=== PATIENT | male | born 1955 | race Caucasian/White ===

== ENCOUNTER → 2016-12-29 | Outpatient (CLI) | payer BC ==
[2016-12-29 15:12] LABS: CH 29.9; CHCM 33.5; HCT 46.5 % (39.0-53.0); HDW 2.28; HGB 15.6 gm/dL (13.0-17.5); MCH 30.2 pg (25.0-35.0); MCHC 33.7 g/dL (31.0-37.0); MCV 89.7 fL (80.0-100.0); RBC 5.18 m/uL (4.30-5.90); RDW 13.2 % (11.5-15.5); WBC 8.3 k/uL (3.8-10.6)
[2016-12-29 15:16] LABS: Partial Thromboplastin Time 24.8 sec (22.0-30.0); Prothrombin Time 10.1 sec (9.0-12.0)
== END | disposition home or self-care (01) ==
LOC: LABWHC1 14:54
PROVIDERS: ATTEND Nurse Practitioner Women's Health
DX: Z01.812 Encounter for preprocedural laboratory examination (principal); M25.561 Pain in right knee
CPT/HCPCS: 36415; 85027; 85610; 85730

== ENCOUNTER 2018-02-12 13:27 | Emergency (ER) | payer BC ==
[2018-02-12] MEDS ORDERED: ONDANSETRON 4 MG/2 ML VIAL IVP STA (14:01)
[2018-02-12] MEDS ORDERED: KETOROLAC 30 MG/ML 1 ML VIAL IVP STA (14:01)
[2018-02-12] MEDS ORDERED: SODIUM CHLORIDE 0.9% 1,000 ML IV STA ×2 (14:01)
--- NOTE | 2018-02-12 14:01 | ED ---
Abdominal Pain HPI - General Chief Complaint: Abdominal Pain Stated Complaint: Diverticulitis Time Seen by Provider: 02/12/18 13:33 Source: patient, RN notes reviewed, old records reviewed Mode of arrival: ambulatory Limitations: no limitations - History of Present Illness Initial Comments: This patient's a 62-year-old male presents emergency department today with intermittent left lower quadrant abdominal pain for the past 2 weeks. Patient reports that he did take some leftover antibiotics on through Tuesday. He reports that today he is out of the antibiotics and went to an urgent care. He was on these antibiotics to treat for diverticulitis. Patient states that he was sent here to the urgent from urgent care due to hematuria as well as increased pain. Patient reports he did have fever 101. Patient states that he hasn't taking Motrin Tylenol for pain. Currently his pain is a 2 out of 10. It seems to come and go. - Related Data Previous Rx's Medication Instructions Recorded Ciprofloxacin HCl 500 mg PO BID #20 tab 02/12/18 metroNIDAZOLE [Flagyl] 500 mg PO TID #30 tab 02/12/18 Allergies Allergy/AdvReac Type Severity Reaction Status Date / Time Fish Containing Products Allergy Unknown Verified 02/12/18 13:30 [Fish] tree nut [Nut] Allergy Unknown Verified 02/12/18 13:30 Review of Systems ROS Statement: Those systems with pertinent positive or pertinent negative responses have been documented in the HPI. ROS Other: All systems not noted in ROS Statement are negative. Past Medical History Past Medical History: No Reported History Additional Past Medical History / Comment(s): diverticulitis History of Any Multi-Drug Resistant Organisms: None Reported Past Surgical History: Hernia Repair Past Psychological History: No Psychological Hx Reported Smoking Status: Current some day smoker Past Alcohol Use History: Occasional Past Drug Use History: Marijuana General Exam - General Exam Comments Initial Comments: This is a 62-year-old male. Alert and oriented. No significant distress. Limitations: no limitations General appearance: alert, in no apparent distress Head exam: Present: atraumatic, normocephalic, normal inspection Eye exam: Present: normal appearance, PERRL, EOMI. Absent: scleral icterus, conjunctival injection, periorbital swelling ENT exam: Present: normal exam, mucous membranes moist Neck exam: Present: normal inspection. Absent: tenderness, meningismus, lymphadenopathy Respiratory exam: Present: normal lung sounds bilaterally. Absent: respiratory distress, wheezes, rales, rhonchi, stridor Cardiovascular Exam: Present: regular rate, normal rhythm, normal heart sounds. Absent: systolic murmur, diastolic murmur, rubs, gallop, clicks GI/Abdominal exam: Present: soft, normal bowel sounds. Absent: distended, tenderness, guarding, rebound, rigid Extremities exam: Present: normal inspection, full ROM, normal capillary refill. Absent: tenderness, pedal edema, joint swelling, calf tenderness Back exam: Present: normal inspection, other (LLQ tenderness) Neurological exam: Present: alert, oriented X3, CN II-XII intact Psychiatric exam: Present: normal affect, normal mood Skin exam: Present: warm, dry, intact, normal color. Absent: rash Course Vital Signs 02/12/18 13:28 Temperature 97.7 F Pulse Rate 52 L Respiratory 18 Rate Blood Pressure 117/95 O2 Sat by Pulse 99 Oximetry Medical Decision Making - Medical Decision Making This is a 62-year-old male presents for his pharmacy her to plan of intermittent left lower quadrant abdominal pain for the past 2 weeks. Have fever a few days ago. Aside labwork was reviewed and unremarkable. Did have some tenderness on exam. We did do a computed tomography scan without contrast. CT she is evidence of mild acute diverticulitis. We'll start the Patient on Cipro and Flagyl. Discussed following up with his primary care physician. He does have an appointment on Tuesday for his regular physical. Discussed return parameters. All questions answered. Patient understands treatment plan will comply. - Lab Data Result diagrams: 02/12/18 13:50 02/12/18 13:50 Lab Results 02/12/18 02/12/18 02/12/18 Range/Units 13:50 13:50 13:50 WBC 7.6 (3.8-10.6) k/uL RBC 5.91 H (4.30-5.90) m/uL Hgb 17.0 (13.0-17.5) gm/dL Hct 51.5 (39.0-53.0) % MCV 87.0 (80.0-100.0) fL MCH 28.8 (25.0-35.0) pg MCHC 33.1 (31.0-37.0) g/dL RDW 13.1 (11.5-15.5) % Plt Count 211 (150-450) k/uL Neutrophils % 64 % Lymphocytes % 22 % Monocytes % 6 % Eosinophils % 5 % Basophils % 1 % Neutrophils # 4.9 (1.3-7.7) k/uL Lymphocytes # 1.7 (1.0-4.8) k/uL Monocytes # 0.5 (0-1.0) k/uL Eosinophils # 0.4 (0-0.7) k/uL Basophils # 0.1 (0-0.2) k/uL Sodium 140 (137-145) mmol/L Potassium 4.7 (3.5-5.1) mmol/L Chloride 101 (98-107) mmol/L Carbon Dioxide 29 (22-30) mmol/L Anion Gap 10 mmol/L BUN 15 (9-20) mg/dL Creatinine 0.83 (0.66-1.25) mg/dL Est GFR (CKD-EPI)AfAm >90 (>60 ml/min/1.73 sqM) Est GFR (CKD-EPI)NonAf >90 (>60 ml/min/1.73 sqM) Glucose 96 (74-99) mg/dL Calcium 9.7 (8.4-10.2) mg/dL Total Bilirubin 0.8 (0.2-1.3) mg/dL AST 21 (17-59) U/L ALT 36 (21-72) U/L Alkaline Phosphatase 61 (38-126) U/L Total Protein 7.9 (6.3-8.2) g/dL Albumin 4.5 (3.5-5.0) g/dL Amylase 56 (30-110) U/L Lipase 21 L (23-300) U/L Urine Color Light Yellow Urine Appearance Clear (Clear) Urine pH 6.0 (5.0-8.0) Ur Specific [place] 1.005 (1.001-1.035) Urine Protein Negative (Negative) Urine Glucose (UA) Negative (Negative) Urine Ketones Negative (Negative) Urine Blood Negative (Negative) Urine Nitrite Negative (Negative) Urine Bilirubin Negative (Negative) Urine Urobilinogen <2.0 (<2.0) mg/dL Ur Leukocyte Esterase Negative (Negative) - Radiology Data Radiology results: report reviewed Suspect mild acute diverticulitis left lower quadrant the junction of the left and sigmoid colon. Disposition Clinical Impression: Diverticulitis Disposition: HOME SELF-CARE Condition: Good Instructions: Diverticulitis (ED), Diverticulitis Diet (ED) Additional Instructions: Patient has follow-up with primary care provider. Return to the emergency department if any alarming signs or symptoms occur. Take the antibiotic as prescribed. Prescriptions: Ciprofloxacin HCl 500 mg PO BID #20 tab metroNIDAZOLE [Flagyl] 500 mg PO TID #30 tab Is patient prescribed a controlled substance at d/c from ED?: No Referrals: Octavio Brito Jr, DO [Primary Care Provider] - 1-2 days Time of Disposition: 15:21
[2018-02-12 14:22] LABS: Appearance,Urine Clear (Clear); Basophils # (A) 0.1 k/uL (0-0.2); Basophils % (A) 1 %; Bilirubin,Urine Negative (Negative); Blood,Urine Negative (Negative); Color,Urine Light Yellow; Eosinophils # (A) 0.4 k/uL (0-0.7); Eosinophils % (A) 5 %; Glucose,Urine (UA) Negative (Negative); HCT 51.5 % (39.0-53.0); Ketones,Urine Negative (Negative); Leukocyte Esterase,Urine Negative (Negative); Lymphocytes # (A) 1.7 k/uL (1.0-4.8); Lymphocytes % (A) 22 %; MCH 28.8 pg (25.0-35.0); MCHC 33.1 g/dL (31.0-37.0); Mean Platelet Volume 6.7; Monocytes # (A) 0.5 k/uL (0-1.0); Monocytes % (A) 6 %; Neutrophils # (A) 4.9 k/uL (1.3-7.7); Neutrophils % (A) 64 %; Nitrite,Urine Negative (Negative); Platelet Count 211 k/uL (150-450); Protein,Urine Negative (Negative); RBC 5.91 m/uL (4.30-5.90); RDW 13.1 % (11.5-15.5); Specific Gravity,Urine 1.005 (1.001-1.035); Urobilinogen,Urine <2.0 mg/dL (<2.0); WBC 7.6 k/uL (3.8-10.6)
[2018-02-12 14:32] LABS: ALT 36 U/L (21-72); AST 21 U/L (17-59); Albumin 4.5 g/dL (3.5-5.0); Alkaline Phosphatase 61 U/L (38-126); Amylase 56 U/L (30-110); Anion Gap 10 mmol/L; Blood Urea Nitrogen 15 mg/dL (9-20); Calcium 9.7 mg/dL (8.4-10.2); Carbon Dioxide 29 mmol/L (22-30); Chloride 101 mmol/L (98-107); Glucose 96 mg/dL (74-99); Lipase 21 U/L (23-300); Potassium 4.7 mmol/L (3.5-5.1); Sodium 140 mmol/L (137-145); Total Bilirubin 0.8 mg/dL (0.2-1.3); Total Protein 7.9 g/dL (6.3-8.2)
--- NOTE | 2018-02-12 15:16 | CT ---
EXAMINATION TYPE: CT abdomen pelvis wo con DATE OF EXAM: 02/12/2018 HISTORY: Abdominal pain, history of diverticulitis. CT DLP: 269.3 mGycm. Automated Exposure Control for Dose Reduction was Utilized. TECHNIQUE: CT scan of the abdomen and pelvis is performed without oral or IV contrast. COMPARISON: CT abdomen and pelvis May 12, 2015 FINDINGS: Within the limitations of a non-contrast study, the following observations are made. LUNG BASES: Dependent atelectasis both bases right worse than left is present. LIVER/GB: No significant abnormality is appreciated. PANCREAS: No significant abnormality is seen. SPLEEN: No significant abnormality is seen. ADRENALS: No significant abnormality is seen. KIDNEYS: No significant abnormality is seen. BOWEL: Evaluation bowel is suboptimal secondary to lack of enteric contrast. There is no suspicious s mall or large bowel dilatation. Normal-appearing appendix is seen from base of cecum. There are diver ticula scattered throughout the colon most prominent in the sigmoid colon. There is no convincing guzman dence of significant surrounding inflammatory change to suggest acute diverticulitis. There is howeve r trace fluid in the left infracolic gutter axial image 92 of uncertain etiology would have to consid er mild acute diverticulitis at this level. No free air is present. No well-formed fluid collection o r abscess is seen. A large 3.5 cm duodenal diverticulum along the mesenteric second and third portion of duodenum coronal image 27 is redemonstrated. GENITAL ORGANS: Prostate gland is prominent in size bulging of bladder base, underlying BPH is felt p resent. Correlate clinically. Some pelvic phleboliths are seen. LYMPH NODES: No greater than 1cm abdominal or pelvic lymph nodes are appreciated. OSSEOUS STRUCTURES: No significant abnormality is seen. OTHER: No significant additional abnormality is seen. IMPRESSION: Suspect mild acute diverticulitis in the left lower quadrant at junction of left and sigm oid colon.
[2018-02-12 15:36] VITALS: BP 141/56; PULSE 80; RESP 20; TEMP 98.3
== END 2018-02-12 15:37 | disposition home or self-care (01) ==
LOC: EC 13:27
DX: K57.92 Diverticulitis of intestine, part unspecified, without perforation or abscess without bleeding (principal); F17.200 Nicotine dependence, unspecified, uncomplicated; Z91.013 Allergy to seafood; Z91.018 Allergy to other foods
CPT/HCPCS: 36415; 80053; 82150; 83690; 85025; 81003; 74176; 99284; 96374; 96375; 96361; J2405; J1885

== ENCOUNTER → 2018-03-10 | Outpatient (CLI) | payer BC ==
--- NOTE | 2018-03-10 08:52 | US ---
EXAMINATION TYPE: US abdomen limited DATE OF EXAM: 03/10/2018 COMPARISON: NONE CLINICAL HISTORY: R94.5 Abnormal liver function test. Elevated liver enzymes EXAM MEASUREMENTS: Liver Length: 15.8 cm Gallbladder Wall: 0.2 cm CBD: 0.4 cm Right Kidney: 11.5 x 3.8 x 4.5 cm Pancreas: limited evaluation due to overlying bowel, visualized portions appear wnl Liver: wnl Gallbladder: no evidence of stones Evidence for sonographic Billings's sign: no CBD: appears wnl Right Kidney: no evidence of hydronephrosis IMPRESSION: No acute process.
== END | disposition home or self-care (01) ==
LOC: RADUSWWP 07:35
PROVIDERS: ATTEND Family Medicine
DX: R94.5 Abnormal results of liver function studies (principal)
CPT/HCPCS: 76705

== ENCOUNTER → 2020-04-14 | Outpatient (CLI) | payer BC ==
--- NOTE | 2020-04-14 15:38 | XR ---
Left hand and left wrist HISTORY: Pain, swelling and lump on wrist 3 views of the left hand, 4 views of the left wrist Osteoarthritic changes noted within the left hand and wrist. There are hypertrophic changes at the ca rpometacarpal joint of the first digit, intercarpal row, radiocarpal joint with probable geode format ion. There is positive ulnar variance. No evident fracture or dislocation. Spurring also present at t he radial ulnar joint distally. Distal interphalangeal joints show hypertrophic changes, marginal spu rring present in the proximal interphalangeal joints to lesser extent. Graph impression: Osteoarthritis.
== END | disposition home or self-care (01) ==
LOC: RADXRMAIN 14:34
PROVIDERS: ATTEND Family Medicine
DX: M19.042 Primary osteoarthritis, left hand (principal); M19.032 Primary osteoarthritis, left wrist

== ENCOUNTER → 2023-01-05 | Outpatient (CLI) | payer MEDICARE ==
--- NOTE | 2023-01-05 21:40 | US ---
EXAMINATION TYPE: US groin RT DATE OF EXAM: 01/05/2023 COMPARISON: CT 02/12/2018 CLINICAL INDICATION: Male, 67 years old with history of K46.9 UNSPECIFIED ABDOMINAL HERNIA WITHOUT OB STRUC; Pt states pain in his right groin x 3 weeks after playing ball. Hx of hernia. Pt states there is no bulging and only pain when he is active TECHNIQUE: Scanned right groin in area of concern FINDINGS: No abnormalities seen in the right groin in the area of concern. No organizing fluid colle ctions or mass. IMPRESSION: No evidence for organizing fluid collection or mass.
== END | disposition home or self-care (01) ==
LOC: RADUSWWP 16:00
PROVIDERS: ATTEND Family Medicine
DX: K46.9 Unspecified abdominal hernia without obstruction or gangrene (principal)